=== PATIENT | female | born 1965 | race Caucasian/White ===

== ENCOUNTER 2024-05-03 12:28 | Inpatient (IN) | payer BC ==
[2024-05-03 13:48] LABS: #Basophils Less than 0.03 10x3/uL (0.0-0.2); %Basophils 0.2 % (0.0-1.0); %Eosinophils 0.5 % (0.0-10.0); %Lymphocytes 7.6 % (21.0-51.0); %Monocytes 11.2 % (0.0-10.0); %Neutrophils 78.9 % (42.0-75.0); Hematocrit 16.3 % (36.0-47.0); Hemoglobin 5.6 g/dL (12.0-16.0); Mean Corpuscular HGB CONC 34.4 g/dL (32.0-36.0); Mean Corpuscular Hemoglobin 43.4 pg (27.0-31.0); Mean Corpuscular Volume 126.4 fL (78.0-98.0); Platelet Count 132 10x3/uL (130-400); Red Blood Cell (RBC) Count 1.29 mill/uL (4.20-5.40)
[2024-05-03 13:55] LABS: ALT (SGPT) 28 U/L (8-55); AST (SGOT) 80 U/L (5-34); Albumin 2.3 g/dL (3.5-5.0); Alkaline Phosphatase 133 U/L (40-110); Anion Gap 13 mmol/L (10-20); BUN (Urea Nitrogen) 14 mg/dL (9.8-20.1); Bilirubin, Total 20.8 mg/dL (0.2-1.2); Calc. Creatinine Clearance 0 mL/min (70-130); Calcium 8.8 mg/dL (7.8-10.44); Carbon Dioxide 21 mmol/L (22-29); Chloride 87 mmol/L (98-107); Estimated GFR 48; Globulin 3.5 g/dL (2.4-3.5); Glucose 125 mg/dL (70-105); Protein, Total 5.8 g/dL (6.0-8.3); Sodium 118 mmol/L (136-145)
[2024-05-03 13:59] LABS: Troponin I Less than 0.010 ng/mL (< 0.028)
[2024-05-03 14:11] LABS: INR-International Normal Ratio 2.7; Prothrombin Time 28.8 sec (12.0-14.7)
[2024-05-03 14:12] LABS: PTT 46.8 sec (22.9-36.1)
[2024-05-03] MEDS ORDERED: Acetaminophen 650 MG Suppository PR PRN (14:44)
[2024-05-03] MEDS ORDERED: Ondansetron ODT 4 MG TAB PO PRN (14:44)
[2024-05-03] MEDS ORDERED: Acetaminophen 325 MG TAB PO PRN (14:44)
[2024-05-03] MEDS ORDERED: Ondansetron PF 4 MG/2 ML Vial IVP PRN (14:44)
[2024-05-03] MEDS ORDERED: Senokot S 8.6-50 MG TAB PO PRN (14:44)
[2024-05-03 15:13] LABS: Phosphorus 2.8 mg/dL (2.3-4.7)
[2024-05-03 15:14] LABS: Magnesium 1.7 mg/dL (1.6-2.6)
[2024-05-03] MEDS: cefTRIAXone\\ROCEPHIN 2 GM in Sodium Chloride 0.9% 100 ML IVPB SCH (17:22)
[2024-05-03] MEDS: Azithromycin 500 MG in Sodium Chloride 0.9% 250 ML 250 ML IVPB SCH (17:23)
[2024-05-03 18:18] LABS: Anion Gap 14 mmol/L (10-20); BUN (Urea Nitrogen) 13 mg/dL (9.8-20.1); Calc. Creatinine Clearance 0 mL/min (70-130); Calcium 8.9 mg/dL (7.8-10.44); Carbon Dioxide 21 mmol/L (22-29); Chloride 88 mmol/L (98-107); Estimated GFR 60; Glucose 96 mg/dL (70-105); Potassium 2.9 mmol/L (3.5-5.1); Sodium 120 mmol/L (136-145)
[2024-05-03] MEDS: Potassium Chloride 20 MEQ in Premix 1 BAG IVPB SCH (19:26)
[2024-05-03] MEDS: Famotidine 20 MG TAB PO SCH (19:26)
[2024-05-03 22:36] LABS: Anion Gap 16 mmol/L (10-20); BUN (Urea Nitrogen) 13 mg/dL (9.8-20.1); Calc. Creatinine Clearance 58 mL/min (70-130); Calcium 8.5 mg/dL (7.8-10.44); Carbon Dioxide 19 mmol/L (22-29); Chloride 90 mmol/L (98-107); Estimated GFR 61; Glucose 103 mg/dL (70-105); Potassium 3.7 mmol/L (3.5-5.1); Sodium 121 mmol/L (136-145)
[2024-05-03 22:38] LABS: Hematocrit 19.8 % (36.0-47.0); Hemoglobin 7.1 g/dL (12.0-16.0)
[2024-05-04 02:28] LABS: Anion Gap 11 mmol/L (10-20); BUN (Urea Nitrogen) 13 mg/dL (9.8-20.1); Calc. Creatinine Clearance 57 mL/min (70-130); Calcium 8.5 mg/dL (7.8-10.44); Carbon Dioxide 22 mmol/L (22-29); Chloride 90 mmol/L (98-107); Estimated GFR 59; Glucose 91 mg/dL (70-105); Potassium 3.5 mmol/L (3.5-5.1); Sodium 119 mmol/L (136-145)
[2024-05-04 04:02] LABS: #Basophils Less than 0.03 10x3/uL (0.0-0.2); %Basophils 0.1 % (0.0-1.0); %Eosinophils 1.1 % (0.0-10.0); %Lymphocytes 8.2 % (21.0-51.0); Hematocrit 19.3 % (36.0-47.0); Hemoglobin 6.8 g/dL (12.0-16.0); Mean Corpuscular HGB CONC 35.2 g/dL (32.0-36.0); Mean Corpuscular Hemoglobin 38.2 pg (27.0-31.0); Mean Corpuscular Volume 108.4 fL (78.0-98.0); Mean Platelet Volume 9.1 fL (7.4-10.4); Platelet Count 106 10x3/uL (130-400); Red Blood Cell (RBC) Count 1.78 mill/uL (4.20-5.40)
[2024-05-04 04:19] LABS: ALT (SGPT) 25 U/L (8-55); AST (SGOT) 73 U/L (5-34); Albumin 2.1 g/dL (3.5-5.0); Alkaline Phosphatase 122 U/L (40-110); Anion Gap 14 mmol/L (10-20); BUN (Urea Nitrogen) 12 mg/dL (9.8-20.1); Bilirubin, Total 19.4 mg/dL (0.2-1.2); Calc. Creatinine Clearance 54 mL/min (70-130); Calcium 8.3 mg/dL (7.8-10.44); Carbon Dioxide 19 mmol/L (22-29); Chloride 90 mmol/L (98-107); Estimated GFR 55; Globulin 3.1 g/dL (2.4-3.5); Glucose 88 mg/dL (70-105); Potassium 3.4 mmol/L (3.5-5.1); Protein, Total 5.2 g/dL (6.0-8.3); Sodium 120 mmol/L (136-145)
[2024-05-04 04:43] LABS: Anisocytosis SLIGHT = 6-15 cells HPF (0-5); Band 7 % (5-11); Eosinophils 1 % (0-10); Hypochromia SLIGHT = 6-15 cells HPF (0-5); Lymphocytes 4 % (21-51); Macrocytosis SLIGHT = 6-15 cells HPF (0-5); Monocytes 10 % (0-10); Neutrophil 79 % (42-75); Nucleated RBC (Manual Ct) 1 % (0); Platelet Adequacy Comment Platelets Decreased; Polychromasia SLIGHT = 2-3 cells HPF (0-2)
[2024-05-04] MEDS: Sodium Chloride 0.9% 1,000 ML IV SCH (05:50)
[2024-05-04] MEDS: Levothyroxine Sodium 88 MCG TAB PO SCH (05:50)
[2024-05-04] MEDS: Pantoprazole 40 MG VIAL IVP SCH ×2 (05:50→21:43)
[2024-05-04 06:27] LABS: Anion Gap 15 mmol/L (10-20); BUN (Urea Nitrogen) 13 mg/dL (9.8-20.1); Calc. Creatinine Clearance 58 mL/min (70-130); Calcium 8.4 mg/dL (7.8-10.44); Carbon Dioxide 20 mmol/L (22-29); Chloride 90 mmol/L (98-107); Estimated GFR 60; Glucose 83 mg/dL (70-105); Potassium 3.5 mmol/L (3.5-5.1); Sodium 121 mmol/L (136-145)
[2024-05-04 10:52] LABS: Anion Gap 15 mmol/L (10-20); BUN (Urea Nitrogen) 13 mg/dL (9.8-20.1); Calc. Creatinine Clearance 58 mL/min (70-130); Calcium 8.4 mg/dL (7.8-10.44); Carbon Dioxide 20 mmol/L (22-29); Chloride 94 mmol/L (98-107); Estimated GFR 59; Glucose 111 mg/dL (70-105); Potassium 3.5 mmol/L (3.5-5.1)
[2024-05-04 11:05] LABS: Sodium 125 mmol/L (136-145)
[2024-05-04] MEDS: Spironolactone 25 MG TAB PO SCH ×2 (11:15→17:58)
[2024-05-04] MEDS: Phytonadione 10 MG in Sodium Chloride 0.9% 50 ML IVPB SCH (11:16)
[2024-05-04 12:53] LABS: Hematocrit 23.1 % (36.0-47.0); Hemoglobin 8.3 g/dL (12.0-16.0); Platelet Count 94 10x3/uL (130-400)
[2024-05-04 12:59] LABS: Sodium 125 mmol/L (136-145)
[2024-05-04 15:08] LABS: Anion Gap 19 mmol/L (10-20); BUN (Urea Nitrogen) 12 mg/dL (9.8-20.1); Calc. Creatinine Clearance 58 mL/min (70-130); Calcium 8.9 mg/dL (7.8-10.44); Carbon Dioxide 18 mmol/L (22-29); Chloride 92 mmol/L (98-107); Estimated GFR 59; Glucose 108 mg/dL (70-105); Potassium 3.3 mmol/L (3.5-5.1); Sodium 126 mmol/L (136-145)
[2024-05-04 20:08] LABS: Hemoglobin 7.6 g/dL (12.0-16.0); Platelet Count 109 10x3/uL (130-400)
[2024-05-04] MEDS: HYDROcodone/Acetaminophen 5/325 mg Tablet PO SCH (23:02)
[2024-05-05] MEDS: Levothyroxine Sodium 88 MCG TAB PO SCH (06:14)
[2024-05-05 08:04] LABS: ALT (SGPT) 28 U/L (8-55); AST (SGOT) 81 U/L (5-34); Albumin 2.2 g/dL (3.5-5.0); Alkaline Phosphatase 126 U/L (40-110); Anion Gap 14 mmol/L (10-20); BUN (Urea Nitrogen) 13 mg/dL (9.8-20.1); Bilirubin, Total 24.7 mg/dL (0.2-1.2); Calc. Creatinine Clearance 65 mL/min (70-130); Calcium 8.7 mg/dL (7.8-10.44); Carbon Dioxide 22 mmol/L (22-29); Chloride 95 mmol/L (98-107); Estimated GFR 65; Globulin 3.5 g/dL (2.4-3.5); Glucose 84 mg/dL (70-105); Potassium 3.3 mmol/L (3.5-5.1); Protein, Total 5.7 g/dL (6.0-8.3); Sodium 128 mmol/L (136-145)
[2024-05-05 08:15] LABS: #Basophils 0.04 10x3/uL (0.0-0.2); %Basophils 0.3 % (0.0-1.0); %Lymphocytes 9.5 % (21.0-51.0); %Monocytes 13.6 % (0.0-10.0); %Neutrophils 72.9 % (42.0-75.0); Hematocrit 22.8 % (36.0-47.0); Hemoglobin 8.3 g/dL (12.0-16.0); Mean Corpuscular HGB CONC 36.4 g/dL (32.0-36.0); Mean Corpuscular Hemoglobin 37.7 pg (27.0-31.0); Mean Corpuscular Volume 103.6 fL (78.0-98.0); Mean Platelet Volume 8.9 fL (7.4-10.4); Platelet Count 106 10x3/uL (130-400)
[2024-05-05] MEDS: Albumin 25% 25 GM (100 mL) BOT IVPB SCH (11:03)
[2024-05-05] MEDS: guaiFENesin/Codeine 200 mg/20 mg 10 ml Cup PO PRN (20:24)
[2024-05-06 08:36] LABS: ALT (SGPT) 22 U/L (8-55); AST (SGOT) 69 U/L (5-34); Alkaline Phosphatase 98 U/L (40-110); Anion Gap 17 mmol/L (10-20); BUN (Urea Nitrogen) 12 mg/dL (9.8-20.1); Bilirubin, Total 22.5 mg/dL (0.2-1.2); Calc. Creatinine Clearance 67 mL/min (70-130); Calcium 9.1 mg/dL (7.8-10.44); Carbon Dioxide 19 mmol/L (22-29); Chloride 94 mmol/L (98-107); Estimated GFR 69; Globulin 2.7 g/dL (2.4-3.5); Glucose 87 mg/dL (70-105); Potassium 3.2 mmol/L (3.5-5.1); Protein, Total 5.7 g/dL (6.0-8.3); Sodium 127 mmol/L (136-145)
[2024-05-06 08:37] LABS: #Basophils 0.03 10x3/uL (0.0-0.2); %Basophils 0.2 % (0.0-1.0); %Eosinophils 1.6 % (0.0-10.0); %Lymphocytes 6.8 % (21.0-51.0); %Monocytes 12.1 % (0.0-10.0); Hematocrit 20.2 % (36.0-47.0); Hemoglobin 7.2 g/dL (12.0-16.0); Mean Corpuscular HGB CONC 35.6 g/dL (32.0-36.0); Mean Corpuscular Hemoglobin 37.3 pg (27.0-31.0); Mean Corpuscular Volume 104.7 fL (78.0-98.0); Mean Platelet Volume 9.3 fL (7.4-10.4); PTT 53.7 sec (22.9-36.1); Platelet Count 86 10x3/uL (130-400); Red Blood Cell (RBC) Count 1.93 mill/uL (4.20-5.40)
[2024-05-06 08:39] LABS: INR-International Normal Ratio 2.6; Prothrombin Time 28.1 sec (12.0-14.7)
[2024-05-06] MEDS: Sodium Chloride 1 GM TAB PO SCH ×2 (15:07→20:35)
[2024-05-06] MEDS: Furosemide 40 MG (4 mL) VIAL SLOW IVP SCH (15:07)
[2024-05-06] MEDS: Potassium Chloride 20 MEQ TAB PO SCH (15:07)
[2024-05-07 05:47] LABS: PTT 56.1 sec (22.9-36.1); Prothrombin Time 31.4 sec (12.0-14.7)
[2024-05-07 05:52] LABS: #Basophils 0.04 10x3/uL (0.0-0.2); %Basophils 0.3 % (0.0-1.0); %Eosinophils 1.7 % (0.0-10.0); %Monocytes 13.1 % (0.0-10.0); %Neutrophils 75.3 % (42.0-75.0); Hematocrit 20.2 % (36.0-47.0); Hemoglobin 7.1 g/dL (12.0-16.0); Mean Corpuscular HGB CONC 35.1 g/dL (32.0-36.0); Mean Corpuscular Hemoglobin 37.2 pg (27.0-31.0); Mean Corpuscular Volume 105.8 fL (78.0-98.0); Mean Platelet Volume 9.2 fL (7.4-10.4); Platelet Count 93 10x3/uL (130-400); Red Blood Cell (RBC) Count 1.91 mill/uL (4.20-5.40)
[2024-05-07 05:55] LABS: ALT (SGPT) 22 U/L (8-55); AST (SGOT) 64 U/L (5-34); Albumin 2.8 g/dL (3.5-5.0); Alkaline Phosphatase 99 U/L (40-110); Anion Gap 14 mmol/L (10-20); BUN (Urea Nitrogen) 14 mg/dL (9.8-20.1); Calc. Creatinine Clearance 64 mL/min (70-130); Calcium 9.1 mg/dL (7.8-10.44); Carbon Dioxide 21 mmol/L (22-29); Chloride 98 mmol/L (98-107); Estimated GFR 66; Globulin 2.6 g/dL (2.4-3.5); Glucose 85 mg/dL (70-105); Potassium 3.7 mmol/L (3.5-5.1); Protein, Total 5.4 g/dL (6.0-8.3); Sodium 129 mmol/L (136-145)
[2024-05-07 06:36] LABS: Anisocytosis MARKED = >30 cells HPF (0-5); Hypochromia SLIGHT = 6-15 cells HPF (0-5); Macrocytosis MARKED = >30 cells HPF (0-5); Platelet Adequacy Comment Platelets Decreased; Polychromasia MODERATE = 3-4 cells HPF (0-2)
[2024-05-07] MEDS: Magnesium Oxide 400 MG TAB PO SCH (08:19)
[2024-05-07] MEDS ORDERED: HYDROcodone/Acetaminophen 10/325 mg Tablet PO PRN (12:00)
[2024-05-07] MEDS: HYDROcodone/Acetaminophen 10/325 mg Tablet PO SCH (12:32)
[2024-05-07] MEDS: Furosemide 40 MG (4 mL) VIAL SLOW IVP SCH (12:33)
[2024-05-07] MEDS: Azithromycin 500 MG in Sodium Chloride 0.9% 250 ML 250 ML IVPB SCH (15:40)
[2024-05-08] MEDS: Ipratropium/Albuterol 3 ML NEB NEB SCH (04:21)
[2024-05-08] MEDS: Benzonatate 100 MG CAP PO PRN (04:21)
[2024-05-08] MEDS: Furosemide 20 MG (2 mL) VIAL SLOW IVP SCH (05:09)
[2024-05-08 06:09] LABS: Actual Bicarbonate (HCO3v) 22.6 mEq/L (22-28); Base Excess -1.5 mEq/L (-2.0 to +3.0); Calcium, Ionized (venous) 1.14 mmol/L (1.16-1.32); Chloride (VBG) 95 mmol/L (98-106); Hematocrit-VBG 24 % (36.0-47.0); Hemoglobin (Hb) 8.2 g/dL (11.7-16.0); Potassium (VBG) 3.74 mmol/L (3.70-5.30); Sodium 127 mmol/L (133-146); pH (venous) 7.425 (7.32-7.43)
[2024-05-08 06:11] LABS: #Basophils 0.03 10x3/uL (0.0-0.2); %Basophils 0.2 % (0.0-1.0); %Eosinophils 1.8 % (0.0-10.0); %Lymphocytes 5.2 % (21.0-51.0); %Monocytes 10.3 % (0.0-10.0); %Neutrophils 80.6 % (42.0-75.0); Hematocrit 21.1 % (36.0-47.0); Hemoglobin 7.4 g/dL (12.0-16.0); Mean Corpuscular HGB CONC 35.1 g/dL (32.0-36.0); Mean Corpuscular Hemoglobin 38.3 pg (27.0-31.0); Mean Corpuscular Volume 109.3 fL (78.0-98.0); Mean Platelet Volume 9.5 fL (7.4-10.4); Platelet Count 102 10x3/uL (130-400); Red Blood Cell (RBC) Count 1.93 mill/uL (4.20-5.40)
[2024-05-08 06:24] LABS: INR-International Normal Ratio 2.8; Prothrombin Time 29.3 sec (12.0-14.7)
[2024-05-08 06:25] LABS: PTT 52.1 sec (22.9-36.1)
[2024-05-08] MEDS ORDERED: Vancomycin (BATCH) 1.25 GM in Premix 1 BAG IVPB SCH (06:30)
[2024-05-08 06:34] LABS: Bilirubin, Total 26.6 mg/dL (0.2-1.2)
[2024-05-08 06:37] LABS: ALT (SGPT) 22 U/L (8-55); AST (SGOT) 77 U/L (5-34); Albumin 2.8 g/dL (3.5-5.0); Alkaline Phosphatase 105 U/L (40-110); Anion Gap 15 mmol/L (10-20); BUN (Urea Nitrogen) 17 mg/dL (9.8-20.1); Calc. Creatinine Clearance 54 mL/min (70-130); Calcium 9.2 mg/dL (7.8-10.44); Carbon Dioxide 20 mmol/L (22-29); Chloride 95 mmol/L (98-107); Estimated GFR 55; Glucose 85 mg/dL (70-105); Magnesium 1.6 mg/dL (1.6-2.6); Potassium 3.7 mmol/L (3.5-5.1); Protein, Total 5.8 g/dL (6.0-8.3); Sodium 126 mmol/L (136-145)
[2024-05-08] MEDS: Meropenem 1 GM in Sodium Chloride 0.9% 100 ML IVPB SCH ×2 (07:45→16:27)
[2024-05-08] MEDS: Lactulose 20 GM (30 mL) UDCUP PO SCH (09:09)
[2024-05-08 10:31] LABS: Influenza A by NAA Not Detected (NotDetected); Influenza B by NAA Not Detected (NotDetected); SARS-CoV-2 NAA Rapid Test Not Detected (NotDetected)
[2024-05-08] MEDS ORDERED: Electrolyte Replacement Protocol FS PRN (12:45)
[2024-05-08] MEDS: Magnesium 2 GM/50 ML(in water) 2 GM in Premix 1 BAG IVPB SCH (13:40)
[2024-05-08] MEDS: Vancomycin (BATCH) 1.5 GM in Premix 1 BAG IVPB SCH (13:45)
[2024-05-08] MEDS ORDERED: Meropenem 1 GM in Sodium Chloride 0.9% 100 ML IVPB SCH (14:00)
[2024-05-08] MEDS: Ipratropium/Albuterol 3 ML NEB NEB PRN (20:00)
[2024-05-08] MEDS: methylPREDNISolone Sod Succ 40 MG VIAL IVP SCH (21:26)
[2024-05-08] MEDS: Vancomycin HCl 750 MG in Sodium Chloride 0.9% 250 ML 250 ML IVPB SCH (21:34)
[2024-05-09 00:35] LABS: #Basophils Less than 0.03 10x3/uL (0.0-0.2); %Basophils 0.1 % (0.0-1.0); %Eosinophils 0.2 % (0.0-10.0); %Lymphocytes 2.3 % (21.0-51.0); %Monocytes 7.4 % (0.0-10.0); %Neutrophils 88.7 % (42.0-75.0); Hemoglobin 7.2 g/dL (12.0-16.0); Mean Corpuscular HGB CONC 34.3 g/dL (32.0-36.0); Mean Corpuscular Hemoglobin 38.3 pg (27.0-31.0); Mean Corpuscular Volume 111.7 fL (78.0-98.0); Mean Platelet Volume 9.1 fL (7.4-10.4); Platelet Count 99 10x3/uL (130-400); Red Blood Cell (RBC) Count 1.88 mill/uL (4.20-5.40)
[2024-05-09 01:18] LABS: ALT (SGPT) 22 U/L (8-55); AST (SGOT) 82 U/L (5-34); Albumin 2.5 g/dL (3.5-5.0); Alkaline Phosphatase 93 U/L (40-110); Anion Gap 20 mmol/L (10-20); BUN (Urea Nitrogen) 19 mg/dL (9.8-20.1); Bilirubin, Total 24.9 mg/dL (0.2-1.2); Calc. Creatinine Clearance 51 mL/min (70-130); Carbon Dioxide 18 mmol/L (22-29); Chloride 98 mmol/L (98-107); Estimated GFR 51; Globulin 2.8 g/dL (2.4-3.5); Glucose 97 mg/dL (70-105); Potassium 3.5 mmol/L (3.5-5.1); Protein, Total 5.3 g/dL (6.0-8.3); Sodium 132 mmol/L (136-145)
[2024-05-09 06:56] LABS: Hematocrit 23.2 % (36.0-47.0); Mean Corpuscular HGB CONC 34.5 g/dL (32.0-36.0); Mean Corpuscular Hemoglobin 37.6 pg (27.0-31.0); Mean Corpuscular Volume 108.9 fL (78.0-98.0); Mean Platelet Volume 9.8 fL (7.4-10.4); Platelet Count 111 10x3/uL (130-400); Red Blood Cell (RBC) Count 2.13 mill/uL (4.20-5.40)
[2024-05-09 07:00] LABS: Vancomycin, Random 19.8 ug/mL (See Comment)
[2024-05-09 07:11] LABS: Bilirubin, Total 25.7 mg/dL (0.2-1.2)
[2024-05-09 07:19] LABS: ALT (SGPT) 23 U/L (8-55); AST (SGOT) 93 U/L (5-34); Albumin 2.6 g/dL (3.5-5.0); Alkaline Phosphatase 106 U/L (40-110); Anion Gap 19 mmol/L (10-20); BUN (Urea Nitrogen) 21 mg/dL (9.8-20.1); Calc. Creatinine Clearance 56 mL/min (70-130); Calcium 9.2 mg/dL (7.8-10.44); Carbon Dioxide 19 mmol/L (22-29); Chloride 98 mmol/L (98-107); Estimated GFR 54; Glucose 109 mg/dL (70-105); Magnesium 1.9 mg/dL (1.6-2.6); Potassium 3.5 mmol/L (3.5-5.1); Protein, Total 5.6 g/dL (6.0-8.3); Sodium 132 mmol/L (136-145)
[2024-05-09 07:36] LABS: Anisocytosis MODERATE=16-30 cells HPF (0-5); Band 11 % (5-11); Burr Cells SLIGHT = 2-5 cells HPF (0-1); Macrocytosis SLIGHT = 6-15 cells HPF (0-5); Monocytes 1 % (0-10); Neutrophil 88 % (42-75); Platelet Adequacy Comment Platelets Decreased; Polychromasia MARKED = >4 cells HPF (0-2); Target Cells SLIGHT = 2-5 cells HPF (0-1)
[2024-05-09] MEDS: Vancomycin HCl 750 MG VIAL ONE ×2 (09:23→09:25)
[2024-05-09] MEDS: Potassium Chloride 20 MEQ TAB PO SCH (09:23)
[2024-05-09] MEDS: Magnesium 2 GM/50 ML(in water) 2 GM in Premix 1 BAG IVPB SCH (09:30)
[2024-05-09] MEDS: Lactulose 20 GM (30 mL) UDCUP PO SCH (14:43)
[2024-05-09] MEDS: Albumin 25% 25 GM (100 mL) BOT IVPB SCH (18:28)
[2024-05-09] MEDS: Furosemide 40 MG (4 mL) VIAL SLOW IVP SCH (18:28)
[2024-05-09] MEDS ORDERED: Rocuronium Bromide 10 MG/ML (10ML VIAL) ONE (20:12)
[2024-05-09] MEDS ORDERED: Etomidate 40 MG (20 mL) VIAL ONE (20:12)
[2024-05-09] MEDS ORDERED: Ventilator Sedation Protocol 1 EACH FS SCH (20:30)
[2024-05-09] MEDS ORDERED: Morphine 2 MG/ML VIAL SLOW IVP PRN (20:45)
[2024-05-09] MEDS ORDERED: Propofol BOLUS 1,000 MG/100 ML VIAL IV PRN (20:45)
[2024-05-09] MEDS ORDERED: DISCONTINUE PREVIOUS NARCOTIC PAIN MEDICATIONS AND BENZODIAZEPINES FS SCH (20:45)
[2024-05-09] MEDS: Propofol 1,000 MG/100 ML VIAL IV PRN (20:45)
[2024-05-09] MEDS ORDERED: Fentanyl BOLUS 250 ML IVPB PRN (20:45)
[2024-05-09 21:07] LABS: Actual Bicarbonate (HCO3a) 22.3 mEq/L (22-28); Base Excess (BEa) -4.6 mEq/L (-2.0 to +3.0); CO2 Tension 50.2 mmHg (35.0-45.0); Calcium, Ionized (arterial) 1.23 mmol/L (1.12-1.30); Carboxyhemoglobin (COHb) 3.5 gm% (0.0-3.0); Hematocrit-ABG 26 % (36.0-47.0); Hemoglobin (Hb) 8.9 g/dL (12.0-16.0); O2 Tension (PaO2), arterial 68.6 mmHg (80.0-100.0); Potassium - ABG Lab 3.19 mmol/L (3.70-5.30); pH, Arterial 7.265 (7.35-7.45)
[2024-05-09 21:08] LABS: Puncture Site RA
[2024-05-09] MEDS: Ipratropium/Albuterol 3 ML NEB NEB SCH (21:39)
[2024-05-09] MEDS: Vancomycin (BATCH) 1.25 GM in Premix 1 BAG IVPB SCH (21:42)
[2024-05-09] MEDS: Furosemide 40 MG (4 mL) VIAL ONE (21:43)
[2024-05-09 22:01] LABS: Hematocrit 25.3 % (36.0-47.0); Hemoglobin 8.6 g/dL (12.0-16.0); Mean Corpuscular Hemoglobin 38.7 pg (27.0-31.0); Mean Platelet Volume 9.6 fL (7.4-10.4); Platelet Count 140 10x3/uL (130-400); Red Blood Cell (RBC) Count 2.22 mill/uL (4.20-5.40)
[2024-05-09 22:09] LABS: Lactic Acid 3.4 mmol/L (0.5-2.2)
[2024-05-09 22:15] LABS: INR-International Normal Ratio 2.9; Prothrombin Time 30.6 sec (12.0-14.7)
[2024-05-09 22:16] LABS: PTT 47.6 sec (22.9-36.1)
[2024-05-09 22:22] LABS: Bilirubin, Total 27.5 mg/dL (0.2-1.2)
[2024-05-09] MEDS: Fentanyl CADD 100 ML IV SCH (22:25)
[2024-05-09] MEDS: methylPREDNISolone Sod Succ 40 MG VIAL IVP SCH (22:39)
[2024-05-09 22:40] LABS: Anisocytosis MODERATE=16-30 cells HPF (0-5); Band 6 % (5-11); Burr Cells MODERATE= 6-15 cells HPF (0-1); Lymphocytes 1 % (21-51); Macrocytosis MARKED = >30 cells HPF (0-5); Monocytes 2 % (0-10); Neutrophil 91 % (42-75); Platelet Adequacy Comment Platelets Normal; Poikilocytosis MARKED = >30 cells HPF (0-5); Polychromasia MODERATE = 3-4 cells HPF (0-2); RBC Morphology 2; Smudge Cells 3.9 %
[2024-05-09 22:44] LABS: ALT (SGPT) 27 U/L (8-55); AST (SGOT) 118 U/L (5-34); Albumin 3.2 g/dL (3.5-5.0); Alkaline Phosphatase 112 U/L (40-110); Anion Gap 17 mmol/L (10-20); BUN (Urea Nitrogen) 24 mg/dL (9.8-20.1); Calc. Creatinine Clearance 56 mL/min (70-130); Calcium 9.6 mg/dL (7.8-10.44); Carbon Dioxide 19 mmol/L (22-29); Chloride 99 mmol/L (98-107); Estimated GFR 54; Globulin 3.4 g/dL (2.4-3.5); Glucose 117 mg/dL (70-105); Magnesium 2.2 mg/dL (1.6-2.6); Potassium 3.2 mmol/L (3.5-5.1); Protein, Total 6.6 g/dL (6.0-8.3); Sodium 132 mmol/L (136-145)
[2024-05-09] MEDS: Lorazepam 2 MG/ML VIAL SLOW IVP PRN (23:36)
[2024-05-10] MEDS: Acetylcysteine 20% 200 MG/ML 30 ML VIAL INH SCH (00:43)
[2024-05-10] MEDS: Sodium Chloride 0.9% 250 ML IV SCH (01:26)
[2024-05-10] MEDS: Albumin 25% 25 GM (100 mL) BOT IVPB SCH ×2 (01:26→17:16)
[2024-05-10] MEDS: NOREPINEPHRINE 8 MG/250 ML-D5W 250 ML ONE (01:26)
[2024-05-10 04:19] LABS: Hematocrit 20.4 % (36.0-47.0); Mean Corpuscular HGB CONC 34.3 g/dL (32.0-36.0); Mean Corpuscular Hemoglobin 38.9 pg (27.0-31.0); Mean Corpuscular Volume 113.3 fL (78.0-98.0); Mean Platelet Volume 9.3 fL (7.4-10.4); Platelet Count 107 10x3/uL (130-400)
[2024-05-10 04:28] LABS: Lactic Acid 2.9 mmol/L (0.5-2.2)
[2024-05-10 04:42] LABS: ALT (SGPT) 23 U/L (8-55); AST (SGOT) 102 U/L (5-34); Albumin 3.1 g/dL (3.5-5.0); Alkaline Phosphatase 91 U/L (40-110); Anion Gap 15 mmol/L (10-20); BUN (Urea Nitrogen) 27 mg/dL (9.8-20.1); Bilirubin, Total 23.9 mg/dL (0.2-1.2); Calc. Creatinine Clearance 52 mL/min (70-130); Calcium 9.3 mg/dL (7.8-10.44); Carbon Dioxide 22 mmol/L (22-29); Chloride 100 mmol/L (98-107); Estimated GFR 50; Globulin 2.7 g/dL (2.4-3.5); Glucose 128 mg/dL (70-105); Potassium 3.2 mmol/L (3.5-5.1); Protein, Total 5.8 g/dL (6.0-8.3); Sodium 134 mmol/L (136-145)
[2024-05-10 05:11] LABS: Anisocytosis SLIGHT = 6-15 cells HPF (0-5); Band 5 % (5-11); Burr Cells MODERATE= 6-15 cells HPF (0-1); Lymphocytes 4 % (21-51); Macrocytosis SLIGHT = 6-15 cells HPF (0-5); Monocytes 8 % (0-10); Myelocyte 1 % (0-0); Neutrophil 83 % (42-75); Nucleated RBC (Manual Ct) 2 % (0); Platelet Adequacy Comment Platelets Decreased; Polychromasia SLIGHT = 2-3 cells HPF (0-2)
[2024-05-10 07:40] LABS: Actual Bicarbonate (HCO3a) 22.6 mEq/L (22-28); Base Excess (BEa) -2.3 mEq/L (-2.0 to +3.0); CO2 Tension 39.4 mmHg (35.0-45.0); Calcium, Ionized (arterial) 1.19 mmol/L (1.12-1.30); Carboxyhemoglobin (COHb) 3.1 gm% (0.0-3.0); Hematocrit-ABG 29 % (36.0-47.0); Potassium - ABG Lab 3.35 mmol/L (3.70-5.30); pH, Arterial 7.377 (7.35-7.45)
[2024-05-10 07:42] LABS: O2 Tension (PaO2), arterial 55.2 mmHg (80.0-100.0); Puncture Site LRA
[2024-05-10] MEDS: Potassium Chloride 20 MEQ TAB PO SCH (07:45)
[2024-05-10] MEDS: methylPREDNISolone Sod Succ 40 MG VIAL IVP SCH (07:47)
[2024-05-10 07:48] LABS: Hematocrit 19.5 % (36.0-47.0); Hemoglobin 6.7 g/dL (12.0-16.0); Mean Corpuscular HGB CONC 34.4 g/dL (32.0-36.0); Mean Corpuscular Hemoglobin 39.2 pg (27.0-31.0); Mean Platelet Volume 9.8 fL (7.4-10.4); Platelet Count 101 10x3/uL (130-400); Red Blood Cell (RBC) Count 1.71 mill/uL (4.20-5.40)
[2024-05-10] MEDS: Furosemide 20 MG TAB PO SCH (08:02)
[2024-05-10 14:02] LABS: Legionella Urinary Ag Negative (Negative)
[2024-05-10 14:03] LABS: Strep pneumo Urine Ag NEGATIVE (NEGATIVE)
[2024-05-10 15:13] LABS: Hematocrit 20.4 % (36.0-47.0); Hemoglobin 6.9 g/dL (12.0-16.0)
[2024-05-10 17:32] VITALS: BMI 25.9
[2024-05-10 18:35] LABS: Hematocrit 21.6 % (36.0-47.0); Hemoglobin 7.3 g/dL (12.0-16.0)
[2024-05-10] MEDS: Octreotide Acetate 100 MCG/ML VIAL SC SCH (21:06)
[2024-05-10] MEDS: NOREPINEPHRINE 8 MG/250 ML-D5W 250 ML IVPB SCH (21:10)
[2024-05-11 05:18] LABS: #Basophils 0.03 10x3/uL (0.0-0.2); #Eosinphils Less than 0.03 10x3/uL (0.0-0.7); %Basophils 0.1 % (0.0-1.0); %Lymphocytes 3.9 % (21.0-51.0); %Monocytes 6.7 % (0.0-10.0); %Neutrophils 88.2 % (42.0-75.0); Hematocrit 20.9 % (36.0-47.0); Hemoglobin 7.1 g/dL (12.0-16.0); Mean Corpuscular Hemoglobin 36.8 pg (27.0-31.0); Mean Corpuscular Volume 108.3 fL (78.0-98.0); Mean Platelet Volume 9.8 fL (7.4-10.4); Platelet Count 87 10x3/uL (130-400); RBC Distribution Width 27.6 % (11.5-14.5); Red Blood Cell (RBC) Count 1.93 mill/uL (4.20-5.40)
[2024-05-11 05:40] LABS: Anisocytosis SLIGHT = 6-15 cells HPF (0-5); Burr Cells SLIGHT = 2-5 cells HPF (0-1); Macrocytosis SLIGHT = 6-15 cells HPF (0-5); Platelet Adequacy Comment Platelets Decreased; Polychromasia SLIGHT = 2-3 cells HPF (0-2)
[2024-05-11 05:46] LABS: ALT (SGPT) 22 U/L (8-55); AST (SGOT) 85 U/L (5-34); Albumin 3.4 g/dL (3.5-5.0); Alkaline Phosphatase 77 U/L (40-110); Anion Gap 17 mmol/L (10-20); BUN (Urea Nitrogen) 41 mg/dL (9.8-20.1); Bilirubin, Total 20.3 mg/dL (0.2-1.2); Calc. Creatinine Clearance 33 mL/min (70-130); Calcium 8.8 mg/dL (7.8-10.44); Carbon Dioxide 20 mmol/L (22-29); Chloride 102 mmol/L (98-107); Estimated GFR 32; Globulin 2.4 g/dL (2.4-3.5); Glucose 132 mg/dL (70-105); Magnesium 2.3 mg/dL (1.6-2.6); Protein, Total 5.8 g/dL (6.0-8.3); Sodium 135 mmol/L (136-145)
[2024-05-11 07:10] LABS: Phosphorus 4.9 mg/dL (2.3-4.7)
[2024-05-11] MEDS: Sodium Chloride 0.9% 1,000 ML IV SCH (08:07)
[2024-05-11] MEDS ORDERED: Vancomycin Dose by Levels Sliding Scale (Wt <71) FS SCH (10:15)
[2024-05-11] MEDS: Meropenem 500 MG in Sodium Chloride 0.9% 100 ML IVPB SCH (17:41)
[2024-05-11] MEDS: Albumin 25% 25 GM (100 mL) BOT IVPB SCH (17:42)
[2024-05-11] MEDS: Vecuronium 10 MG VIAL IVP SCH (17:42)
[2024-05-12 05:48] LABS: ALT (SGPT) 20 U/L (8-55); AST (SGOT) 69 U/L (5-34); Albumin 4.3 g/dL (3.5-5.0); Alkaline Phosphatase 68 U/L (40-110); Anion Gap 20 mmol/L (10-20); BUN (Urea Nitrogen) 54 mg/dL (9.8-20.1); Bilirubin, Total 18.9 mg/dL (0.2-1.2); Calc. Creatinine Clearance 23 mL/min (70-130); Calcium 8.4 mg/dL (7.8-10.44); Carbon Dioxide 20 mmol/L (22-29); Chloride 101 mmol/L (98-107); Estimated GFR 20; Globulin 2.3 g/dL (2.4-3.5); Glucose 160 mg/dL (70-105); Potassium 3.7 mmol/L (3.5-5.1); Protein, Total 6.6 g/dL (6.0-8.3); Sodium 137 mmol/L (136-145)
[2024-05-12 06:13] LABS: Vancomycin, Trough 28.6 ug/mL
[2024-05-12 06:34] LABS: #Basophils Less than 0.03 10x3/uL (0.0-0.2); #Eosinphils Less than 0.03 10x3/uL (0.0-0.7); %Basophils 0.1 % (0.0-1.0); %Lymphocytes 3.3 % (21.0-51.0); %Monocytes 6.7 % (0.0-10.0); %Neutrophils 88.1 % (42.0-75.0); Hematocrit 20.8 % (36.0-47.0); Hemoglobin 6.6 g/dL (12.0-16.0); Mean Corpuscular HGB CONC 31.7 g/dL (32.0-36.0); Mean Corpuscular Hemoglobin 37.1 pg (27.0-31.0); Mean Corpuscular Volume 116.9 fL (78.0-98.0); Mean Platelet Volume 10.2 fL (7.4-10.4); Platelet Count 72 10x3/uL (130-400); RBC Distribution Width 27.5 % (11.5-14.5); Red Blood Cell (RBC) Count 1.78 mill/uL (4.20-5.40)
[2024-05-12 07:01] LABS: Analyzer IN Cardio OR; Base Excess (BEa) -5.6 mEq/L (-2.0 to +3.0); CO2 Tension 55.6 mmHg (35.0-45.0); Calcium, Ionized (arterial) 1.11 mmol/L (1.12-1.30); Carboxyhemoglobin (COHb) 1.7 gm% (0.0-3.0); Hematocrit-ABG 23 % (36.0-47.0); Hemoglobin (Hb) 7.7 g/dL (12.0-16.0); Potassium - ABG Lab 3.82 mmol/L (3.70-5.30); pH, Arterial 7.215 (7.35-7.45)
[2024-05-12 07:13] LABS: Puncture Site LRA
[2024-05-12 08:40] LABS: Actual Bicarbonate (HCO3a) 20.2 mEq/L (22-28); Analyzer IN Cardio OR; Base Excess (BEa) -4.7 mEq/L (-2.0 to +3.0); Calcium, Ionized (arterial) 1.05 mmol/L (1.12-1.30); Carboxyhemoglobin (COHb) 1.9 gm% (0.0-3.0); Hematocrit-ABG 23 % (36.0-47.0); Hemoglobin (Hb) 7.7 g/dL (12.0-16.0); O2 Tension (PaO2), arterial 199.8 mmHg (80.0-100.0); Potassium - ABG Lab 3.79 mmol/L (3.70-5.30); pH, Arterial 7.367 (7.35-7.45)
[2024-05-12 08:44] LABS: Puncture Site LRA
[2024-05-12] MEDS: Bisacodyl 10 MG SUPP PR SCH (08:57)
[2024-05-12] MEDS: Bisacodyl 5 MG TAB PO SCH (09:04)
[2024-05-12] MEDS: Thiamine 100 MG TAB PO SCH (09:05)
[2024-05-12] MEDS: Midodrine HCl 5 MG TAB PO SCH (09:05)
[2024-05-12] MEDS: Multivits W-Minerals Liquid 15 ML UDCUP PER TUBE SCH (09:05)
[2024-05-12] MEDS: Folic Acid 1 MG TAB PO SCH (09:05)
[2024-05-12] MEDS: Rifaximin 550 MG TAB PO SCH (10:56)
[2024-05-12] MEDS: Lactulose 20 GM (30 mL) UDCUP PO SCH (10:57)
[2024-05-12] MEDS ORDERED: Metoclopramide HCl 10 MG (2 mL) VIAL IVP SCH (14:00)
[2024-05-12] MEDS: Metoclopramide HCl 10 MG (2 mL) VIAL IVP SCH (15:03)
[2024-05-12] MEDS: Phytonadione 10 MG in Sodium Chloride 0.9% 50 ML IVPB SCH (16:29)
[2024-05-13 04:21] VITALS: BMI 27.3
[2024-05-13 04:36] LABS: INR-International Normal Ratio 3.2; Prothrombin Time 32.5 sec (12.0-14.7)
[2024-05-13 04:54] LABS: ALT (SGPT) 21 U/L (8-55); AST (SGOT) 72 U/L (5-34); Albumin 3.9 g/dL (3.5-5.0); Alkaline Phosphatase 59 U/L (40-110); Anion Gap 21 mmol/L (10-20); BUN (Urea Nitrogen) 69 mg/dL (9.8-20.1); Bilirubin, Total 16.7 mg/dL (0.2-1.2); Calc. Creatinine Clearance 22 mL/min (70-130); Calcium 8.5 mg/dL (7.8-10.44); Carbon Dioxide 18 mmol/L (22-29); Chloride 105 mmol/L (98-107); Estimated GFR 19; Glucose 116 mg/dL (70-105); Potassium 3.9 mmol/L (3.5-5.1); Protein, Total 5.9 g/dL (6.0-8.3); Sodium 140 mmol/L (136-145)
[2024-05-13 04:56] LABS: Vancomycin, Trough 25.3 ug/mL
[2024-05-13 04:59] LABS: #Basophils Less than 0.03 10x3/uL (0.0-0.2); #Eosinphils Less than 0.03 10x3/uL (0.0-0.7); %Basophils 0.1 % (0.0-1.0); %Lymphocytes 2.8 % (21.0-51.0); %Monocytes 5.9 % (0.0-10.0); %Neutrophils 88.8 % (42.0-75.0); Hematocrit 22.8 % (36.0-47.0); Hemoglobin 7.9 g/dL (12.0-16.0); Mean Corpuscular HGB CONC 34.6 g/dL (32.0-36.0); Mean Corpuscular Hemoglobin 36.6 pg (27.0-31.0); Mean Corpuscular Volume 105.6 fL (78.0-98.0); Mean Platelet Volume 10.3 fL (7.4-10.4); Platelet Count 48 10x3/uL (130-400); Red Blood Cell (RBC) Count 2.16 mill/uL (4.20-5.40)
[2024-05-13 07:21] LABS: Actual Bicarbonate (HCO3a) 20.4 mEq/L (22-28); Base Excess (BEa) -1.7 mEq/L (-2.0 to +3.0); CO2 Tension 25.5 mmHg (35.0-45.0); Calcium, Ionized (arterial) 1.09 mmol/L (1.12-1.30); Carboxyhemoglobin (COHb) 0.3 gm% (0.0-3.0); Hematocrit-ABG 27 % (36.0-47.0); Hemoglobin (Hb) 9.1 g/dL (12.0-16.0); pH, Arterial 7.521 (7.35-7.45)
[2024-05-13 07:22] LABS: Puncture Site LBA
[2024-05-13 07:23] LABS: ALV-art Gradient 160.325 mmHg (0-20)
[2024-05-13] MEDS ORDERED: Acetaminophen 325 MG TAB PO PRN (09:49)
[2024-05-13 10:27] LABS: Bilirubin 1+ (Negative); Blood, Urine Negative (Negative); Clarity Clear (Clear); Glucose, Urine (Dipstick) Normal (Negative); Ketone, Urine Negative (Negative); Leukocyte Negative Leu/uL (Negative); Nitrite Negative (Negative); Protein, Urine (Dipstick) 10 mg/dL (Neg-Trace); RBC/HPF 0-3 HPF (0-3); Specific Gravity, Urine 1.018 (1.002-1.036); Urobilinogen 3 mg/dL (Less than 2); WBC/HPF 0-3 HPF (0-3); pH, Urine 5.5 (5.0-9.0)
[2024-05-13 10:39] LABS: Creatinine, Urine 131.41 mg/dL (47-110); Sodium, Urine Less than 20 mmol/L (Not Available)
[2024-05-13 10:55] LABS: Bacteria/HPF None Seen HPF (None Seen)
[2024-05-13] MEDS: Albumin 25% 25 GM (100 mL) BOT IVPB SCH ×2 (11:13→17:42)
[2024-05-13] MEDS: Octreotide Acetate 100 MCG/ML VIAL SC SCH (14:09)
[2024-05-13] MEDS: Midodrine HCl 5 MG TAB PO SCH (14:09)
[2024-05-13] MEDS ORDERED: Chlorhexidine Gluconate 15 ML UDCUP SSP PRN (20:59)
[2024-05-14 05:53] LABS: Vancomycin, Trough 17.5 ug/mL
[2024-05-14 05:56] LABS: #Basophils Less than 0.03 10x3/uL (0.0-0.2); #Eosinphils Less than 0.03 10x3/uL (0.0-0.7); %Basophils 0.1 % (0.0-1.0); %Lymphocytes 2.4 % (21.0-51.0); %Monocytes 7.9 % (0.0-10.0); %Neutrophils 87.4 % (42.0-75.0); Hematocrit 24.9 % (36.0-47.0); Mean Corpuscular HGB CONC 32.1 g/dL (32.0-36.0); Mean Corpuscular Hemoglobin 36.2 pg (27.0-31.0); Mean Corpuscular Volume 112.7 fL (78.0-98.0); Mean Platelet Volume 11.2 fL (7.4-10.4); Platelet Count 46 10x3/uL (130-400); RBC Distribution Width 26.3 % (11.5-14.5); Red Blood Cell (RBC) Count 2.21 mill/uL (4.20-5.40)
[2024-05-14 06:25] LABS: Anisocytosis SLIGHT = 6-15 cells HPF (0-5); Burr Cells SLIGHT = 2-5 cells HPF (0-1); Macrocytosis SLIGHT = 6-15 cells HPF (0-5); Platelet Adequacy Comment Platelets Decreased; Poikilocytosis SLIGHT = 6-15 cells HPF (0-5); Polychromasia SLIGHT = 2-3 cells HPF (0-2); Tear Drops SLIGHT = 2-5 cells HPF (0-1)
[2024-05-14 09:08] LABS: ALT (SGPT) 24 U/L (8-55); AST (SGOT) 77 U/L (5-34); Albumin 4.7 g/dL (3.5-5.0); Alkaline Phosphatase 63 U/L (40-110); Anion Gap 20 mmol/L (10-20); BUN (Urea Nitrogen) 98 mg/dL (9.8-20.1); Bilirubin, Total 20.4 mg/dL (0.2-1.2); Calc. Creatinine Clearance 21 mL/min (70-130); Calcium 8.9 mg/dL (7.8-10.44); Carbon Dioxide 20 mmol/L (22-29); Chloride 106 mmol/L (98-107); Estimated GFR 17; Globulin 2.1 g/dL (2.4-3.5); Glucose 149 mg/dL (70-105); Potassium 4.4 mmol/L (3.5-5.1); Protein, Total 6.8 g/dL (6.0-8.3); Sodium 142 mmol/L (136-145)
[2024-05-14] MEDS: Sodium Bicarbonate Tab 325 MG TAB PO SCH (10:17)
[2024-05-14] MEDS: Vancomycin HCl 250 MG in Sodium Chloride 0.9% 100 ML IV SCH (10:17)
[2024-05-14] MEDS: Albumin 25% 25 GM (100 mL) BOT IVPB SCH (12:41)
[2024-05-15 05:04] LABS: #Basophils Less than 0.03 10x3/uL (0.0-0.2); #Eosinphils Less than 0.03 10x3/uL (0.0-0.7); %Basophils 0.1 % (0.0-1.0); %Lymphocytes 1.2 % (21.0-51.0); %Monocytes 7.1 % (0.0-10.0); %Neutrophils 89.1 % (42.0-75.0); Hematocrit 23.6 % (36.0-47.0); Hemoglobin 7.8 g/dL (12.0-16.0); Mean Corpuscular HGB CONC 33.1 g/dL (32.0-36.0); Mean Corpuscular Hemoglobin 36.6 pg (27.0-31.0); Mean Corpuscular Volume 110.8 fL (78.0-98.0); Mean Platelet Volume 11.2 fL (7.4-10.4); Platelet Count 40 10x3/uL (130-400); RBC Distribution Width 25.7 % (11.5-14.5); Red Blood Cell (RBC) Count 2.13 mill/uL (4.20-5.40)
[2024-05-15 05:30] LABS: ALT (SGPT) 26 U/L (8-55); AST (SGOT) 80 U/L (5-34); Albumin 4.4 g/dL (3.5-5.0); Alkaline Phosphatase 64 U/L (40-110); Anion Gap 18 mmol/L (10-20); BUN (Urea Nitrogen) 107 mg/dL (9.8-20.1); Calc. Creatinine Clearance 23 mL/min (70-130); Calcium 9.1 mg/dL (7.8-10.44); Carbon Dioxide 22 mmol/L (22-29); Chloride 106 mmol/L (98-107); Estimated GFR 18; Globulin 1.9 g/dL (2.4-3.5); Glucose 130 mg/dL (70-105); Potassium 4.5 mmol/L (3.5-5.1); Protein, Total 6.3 g/dL (6.0-8.3); Sodium 141 mmol/L (136-145)
[2024-05-15 05:36] LABS: Anisocytosis SLIGHT = 6-15 cells HPF (0-5); Burr Cells SLIGHT = 2-5 cells HPF (0-1); Macrocytosis SLIGHT = 6-15 cells HPF (0-5); Platelet Adequacy Comment Significant Decrease; Polychromasia SLIGHT = 2-3 cells HPF (0-2)
[2024-05-15] MEDS: Albumin 25% 25 GM (100 mL) BOT IVPB SCH (09:09)
[2024-05-15 10:39] VITALS: BP 122/65
[2024-05-15 11:43] VITALS: TEMP 98.5
[2024-05-15] MEDS ORDERED: Albumin 25% 25 GM (100 mL) BOT IVPB SCH (14:00)
[2024-05-15] MEDS: Lorazepam 2 MG/ML VIAL SLOW IVP PRN (16:17)
[2024-05-15] MEDS: Morphine 4 MG/ML VIAL SLOW IVP PRN (18:17)
== END 2024-05-15 18:41 | disposition expired | DRG 207 ==
LOC: ERS 12:28 → SUATTDRO 12:28 → IMCU/EMU 16:35 → T4-B 05-05 17:53 → CCU 05-08 06:44 → MSONC 05-08 15:16 → IMCU/EMU 05-09 00:05 → CCU 05-09 20:28
PROVIDERS: ADMIT Family Medicine; ATTEND Internal Medicine
PROC: 30233N1 Transfusion of Nonautologous Red Blood Cells into Peripheral Vein, Percutaneous Approach (ICD-10-PCS; 2024-05-03)
PROC: 3E03329 Introduction of Other Anti-infective into Peripheral Vein, Percutaneous Approach (ICD-10-PCS; 2024-05-03)
PROC: 30233J1 Transfusion of Nonautologous Serum Albumin into Peripheral Vein, Percutaneous Approach (ICD-10-PCS; 2024-05-05)
PROC: 5A1955Z Respiratory Ventilation, Greater than 96 Consecutive Hours (ICD-10-PCS; 2024-05-09)
PROC: 0BH17EZ Insertion of Endotracheal Airway into Trachea, Via Natural or Artificial Opening (ICD-10-PCS; 2024-05-09)
PROC: 4A133R1 Monitoring of Arterial Saturation, Peripheral, Percutaneous Approach (ICD-10-PCS; 2024-05-09)
PROC: 5A09357 Assistance with Respiratory Ventilation, Less than 24 Consecutive Hours, Continuous Positive Airway Pressure (ICD-10-PCS; 2024-05-09)
PROC: 06HY33Z Insertion of Infusion Device into Lower Vein, Percutaneous Approach (ICD-10-PCS; principal; 2024-05-10)
PROC: 3E033XZ Introduction of Vasopressor into Peripheral Vein, Percutaneous Approach (ICD-10-PCS; 2024-05-10)
DX: J84.89 Other specified interstitial pulmonary diseases (principal); A41.9 Sepsis, unspecified organism; J80 Acute respiratory distress syndrome; Z51.5 Encounter for palliative care; Z66 Do not resuscitate; K76.7 Hepatorenal syndrome; K72.00 Acute and subacute hepatic failure without coma; N17.0 Acute kidney failure with tubular necrosis; R65.21 Severe sepsis with septic shock; G93.41 Metabolic encephalopathy; E87.1 Hypo-osmolality and hyponatremia; E46 Unspecified protein-calorie malnutrition; D62 Acute posthemorrhagic anemia; K76.6 Portal hypertension; E87.21 Acute metabolic acidosis; G93.40 Encephalopathy, unspecified; D68.4 Acquired coagulation factor deficiency; R64 Cachexia; E44.0 Moderate protein-calorie malnutrition; K70.31 Alcoholic cirrhosis of liver with ascites; E03.9 Hypothyroidism, unspecified; F17.210 Nicotine dependence, cigarettes, uncomplicated; E87.6 Hypokalemia; N18.30 Chronic kidney disease, stage 3 unspecified; E80.6 Other disorders of bilirubin metabolism; D63.8 Anemia in other chronic diseases classified elsewhere; D69.59 Other secondary thrombocytopenia; M62.81 Muscle weakness (generalized); K70.11 Alcoholic hepatitis with ascites; Z68.28 Body mass index [BMI] 28.0-28.9, adult; E88.09 Other disorders of plasma-protein metabolism, not elsewhere classified; K59.00 Constipation, unspecified; R53.81 Other malaise; Z79.890 Hormone replacement therapy; Z79.899 Other long term (current) drug therapy; I95.9 Hypotension, unspecified
CPT/HCPCS: 36415; 36416; 36430; 36600; 71045; 76705; 80048; 80053; 80202; 81001; 82140; 82550; 82570; 82805; 83605; 83735; 83880; 83935; 84100; 84145; 84300; 84443; 84484; 85025; 85610; 85730; 86850; 86900; 86901; 87040; 87081; 87449; 87633; 87899; 93005; 93306; 94002; 94003; 94640; 94660; C9113; J0132; J0456; J0696; J1940; J2060; J2185; J2270; J2354; J2704; J2765; J2920; J3010; J3370; J3430; J3475; J3480; J3490; J7030; J7050; J7620; P9016; P9047